=== PATIENT | male | born 1980 | race Caucasian/White ===

== ENCOUNTER → 2016-07-07 | Outpatient (CLI) | payer OTHER | LOC: HEART 5 09:29 | DX: R06.02 Shortness of breath (principal) | CPT/HCPCS: 94010 ==

== ENCOUNTER → 2016-07-07 | Outpatient (CLI) | payer OTHER | LOC: SLEEP 21:30 | DX: G47.33 Obstructive sleep apnea (adult) (pediatric) (principal) | CPT/HCPCS: 95810 ==

== ENCOUNTER → 2016-07-29 | Outpatient (CLI) | payer OTHER | LOC: HEART 5 11:19 | DX: R00.2 Palpitations (principal); R00.0 Tachycardia, unspecified | CPT/HCPCS: 93306 ==

== ENCOUNTER → 2020-05-06 | Day surgery (SDC) | payer OTHER ==
[~2020-05-06] MED LIST: BREO ELLIPTA 21 EACH INH; DOXYCYCLINE HY100 MG PO; FIBER TAB PO; FIBERCON 625 M625 MG PO; HYDROCODON-ACE1 EAC1 PO; IBU800 MG PO; LISINOPRIL40 MG PO; MONTELUKAST SOD10 MG PO; NASACORT16.9 ML; NASOCORT SPRAY; PROBIOTIC1 EAC1 PO; PROBIOTIC250 MG PO; SIMVASTATIN20 MG PO; SINGULAIR10 MG PO; STOOL SOFTENER100 M1 PO; STOOL SOFTNER PO; SUDAFED 30 MG T30 MG PO; VENTOLIN HFA INH; VENTOLIN INH; VITAMIN D2 PO; VITAMIN D21250 MCG PO; ZOFRAN ODT 4 MG4 MG PO
== END | disposition home or self-care (01) ==
LOC: OR 06:47
PROVIDERS: Internal Medicine Gastroenterology
PROC: 0DBE8ZX Excision of Large Intestine, Via Natural or Artificial Opening Endoscopic, Diagnostic (ICD-10-PCS; 2020-05-06)
PROC: 0DBB8ZX Excision of Ileum, Via Natural or Artificial Opening Endoscopic, Diagnostic (ICD-10-PCS; principal; 2020-05-06 12:30)
DX: K58.1 Irritable bowel syndrome with constipation (principal); K64.0 First degree hemorrhoids; E66.01 Morbid (severe) obesity due to excess calories; I10 Essential (primary) hypertension; E78.5 Hyperlipidemia, unspecified; F17.210 Nicotine dependence, cigarettes, uncomplicated; J45.909 Unspecified asthma, uncomplicated; K21.9 Gastro-esophageal reflux disease without esophagitis; K58.9 Irritable bowel syndrome, unspecified; Z68.41 Body mass index [BMI] 40.0-44.9, adult; Z88.0 Allergy status to penicillin; Z88.1 Allergy status to other antibiotic agents; Z79.899 Other long term (current) drug therapy; Z20.828 Contact with and (suspected) exposure to other viral communicable diseases
CPT/HCPCS: J2250; J2704; J7040

== ENCOUNTER → 2020-05-29 | Outpatient (CLI) | payer OTHER | LOC: KOH-I 08:24 | DX: S83.242A Other tear of medial meniscus, current injury, left knee, initial encounter (principal); S83.512A Sprain of anterior cruciate ligament of left knee, initial encounter; S83.282A Other tear of lateral meniscus, current injury, left knee, initial encounter; M71.22 Synovial cyst of popliteal space [Baker], left knee; X58.XXXA Exposure to other specified factors, initial encounter | CPT/HCPCS: 73721 ==

== ENCOUNTER 2020-06-15 23:12 | Emergency (ER) | payer OTHER ==
[2020-06-16 00:48] LABS: BUN/CREATININE RATIO 16 (0-10)
== END 2020-06-16 01:52 | disposition home or self-care (01) ==
LOC: ER1 23:12
PROVIDERS: Physician Assistant
DX: G89.18 Other acute postprocedural pain (principal); J34.89 Other specified disorders of nose and nasal sinuses; R00.0 Tachycardia, unspecified; I10 Essential (primary) hypertension; F17.290 Nicotine dependence, other tobacco product, uncomplicated; Z88.0 Allergy status to penicillin; Z88.1 Allergy status to other antibiotic agents; J32.9 Chronic sinusitis, unspecified; J34.2 Deviated nasal septum; J34.3 Hypertrophy of nasal turbinates
CPT/HCPCS: 70450; 71045; 80048; 82550; 82553; 83874; 84484; 93005; 96374; 96375; 99284; C1726; J0171; J1100; J1170; J1885; J1956; J2001; J2250; J2405; J2704; J2710; J3010; J7030; J7120

== ENCOUNTER → 2020-08-07 | Outpatient (CLI) | payer OTHER | LOC: KOH-I 10:16 | DX: M79.662 Pain in left lower leg (principal); M79.89 Other specified soft tissue disorders | CPT/HCPCS: 93971 ==

== ENCOUNTER 2020-10-20 14:48 | Emergency (ER) | payer OTHER ==
[2020-10-20 16:32] LABS: HEMOGLOBIN 16.6 gm/dl (14.0-17.5); RED BLOOD COUNT 5.43 M/UL (4.20-5.50); WHITE BLOOD COUNT 18.4 K/UL (4.5-11.0)
[2020-10-20 16:59] LABS: BUN/CREATININE RATIO 21 (0-10)
== END 2020-10-20 21:45 | disposition home or self-care (01) ==
LOC: ER1 14:48
PROVIDERS: Physician Assistant Medical
DX: R07.89 Other chest pain (principal); E78.5 Hyperlipidemia, unspecified; I10 Essential (primary) hypertension; K21.9 Gastro-esophageal reflux disease without esophagitis; F17.290 Nicotine dependence, other tobacco product, uncomplicated; Z88.0 Allergy status to penicillin; Z88.1 Allergy status to other antibiotic agents
CPT/HCPCS: 71045; 80053; 82550; 82553; 83690; 83874; 84484; 85025; 85379; 85610; 85730; 93005; 99285

== ENCOUNTER → 2020-11-17 | Outpatient (CLI) | payer OTHER | LOC: KOH-I 09:26 | DX: S83.32XA Tear of articular cartilage of left knee, current, initial encounter (principal) | CPT/HCPCS: 73721 ==

== ENCOUNTER 2021-03-17 09:27 | Emergency (ER) | payer OTHER ==
[2021-03-17] MEDS ORDERED: MEDROL DOSEPAK 24 MG PO (11:13)
[2021-03-17] MEDS ORDERED: MUCINEX600 MG PO (11:29)
== END 2021-03-17 11:26 | disposition home or self-care (01) ==
LOC: ER1 09:27
DX: J06.9 Acute upper respiratory infection, unspecified (principal); I10 Essential (primary) hypertension; F17.290 Nicotine dependence, other tobacco product, uncomplicated; Z88.1 Allergy status to other antibiotic agents; Z20.822 Contact with and (suspected) exposure to COVID-19; Z88.0 Allergy status to penicillin; K21.9 Gastro-esophageal reflux disease without esophagitis; J45.909 Unspecified asthma, uncomplicated
CPT/HCPCS: 71045; 87081; 87880; 94760; 99283; U0002

== ENCOUNTER 2021-06-25 20:07 | Emergency (ER) | payer OTHER ==
[~2021-06-25 20:07] MED LIST changes: +MEDROL DOSEPAK 24 MG PO; +MUCINEX600 MG PO
[2021-06-25] MEDS ORDERED: IBUPROFEN800 MG PO (23:25)
== END 2021-06-25 23:42 | disposition home or self-care (01) ==
LOC: ER1 20:07
DX: U07.1 COVID-19 (principal); I10 Essential (primary) hypertension; E78.5 Hyperlipidemia, unspecified; Z88.0 Allergy status to penicillin; Z88.8 Allergy status to other drugs, medicaments and biological substances; F17.290 Nicotine dependence, other tobacco product, uncomplicated; M54.2 Cervicalgia
CPT/HCPCS: 70450; 72040; 99284

== ENCOUNTER 2021-08-25 07:25 | Emergency (ER) | payer OTHER ==
[~2021-08-25 07:25] MED LIST changes: +IBUPROFEN800 MG PO
[2021-08-25 08:22] LABS: HEMOGLOBIN 15.7 gm/dl (14.0-17.5); RED BLOOD COUNT 5.13 M/UL (4.20-5.50); WHITE BLOOD COUNT 16.7 K/UL (4.5-11.0)
[2021-08-25 08:47] LABS: BUN/CREATININE RATIO 12 (0-10)
[2021-08-25] MEDS ORDERED: HYDROCODON-ACE1 EAC4 PO (12:09)
[2021-08-25] MEDS ORDERED: ZOFRAN 4 MG TAB4 MG PO (12:09)
== END 2021-08-25 12:27 | disposition home or self-care (01) ==
LOC: ER1 07:25
PROVIDERS: Emergency Medicine
DX: K85.90 Acute pancreatitis without necrosis or infection, unspecified (principal); K21.9 Gastro-esophageal reflux disease without esophagitis; Z88.0 Allergy status to penicillin; F17.290 Nicotine dependence, other tobacco product, uncomplicated
CPT/HCPCS: 74018; 80053; 83690; 85025; 86140; 96374; 99284; J1885; Q9967

== ENCOUNTER → 2021-10-13 | Outpatient (CLI) | payer OTHER ==
[~2021-10-13] MED LIST changes: +HYDROCODON-ACE1 EAC4 PO; +ZOFRAN 4 MG TAB4 MG PO
== END ==
LOC: US 10:30
DX: K85.00 Idiopathic acute pancreatitis without necrosis or infection (principal)
CPT/HCPCS: 36415; 76705; 80061; 82150; 83690